=== PATIENT | male | born 1970 | race Caucasian/White ===

== ENCOUNTER 2017-03-06 10:28 | Emergency (ER) | payer SELFPAY ==
[~2017-03-06] VITALS: Ht 162.6 cm; Wt 83.9 kg
--- NOTE | 2017-03-06 11:08 | Urgent Treatment Center Report ---
History of Present Issue Date/Time Seen by Provider 03/06/17 1104 Visit Reason Pt arrived:Walked Presenting Problem:PT C/O ELEVATED B/P. DENIES ANY OTHER PAIN AND ADVISES HE HAD A FULL CARDIAC WORK-UP LAST WEEK AND ALL WAS NORMAL, Location if Accident: Onset of symptoms date/time:/ or onset unknown for:MEDICAL HX UNKNOWN Have you (or family members/close friends) recently traveled outside the [place]? N If Yes, where/when: Have you had exposure to infectious disease within the past month? TB? Other? Specify: Patient state that he was seen last week at [facility] ER and refered to Cardiology where he underwent Stress test and full cardiac work up. State that he is taking Losartan for his blood pressure and it is not working and wanting to be seen to add another blood pressure medication. State that he sees Hardik Zepeda in [place] where he was prescribed the medication. States his work will not let him return until his blood pressure is controlled by medication ALLERGIES Coded Allergies: bupropion (From WELLBUTRIN) (Mild, 03/06/17) History Medical History General CAD? No Angina: No NH: No Hypertension? Yes Hyperlipidemia? No CHF? No DVT? No PE? No COPD? No Asthma? No Anemia? No GERD? No Gastric ulcers? No GI Bleed? No Hernia? No Thyroid Problems? No Hypothyroidism? No CVA? No Seizures? No Diabetes? No Renal Insuffiency? No UTI? No Stones? No BPH? No GB Disease: No Nephritic Syndrome? No Asplenia? No Hepatitis? No Sickle Cell Disease? No Arthritis? No Migraines? No Cataracts? No Glaucoma? No MRSA? No HIV? No TB? No Anxiety? No Depression? No Cancer? No More? No Immunization HX DT/Tetanus 1-4 Years Ago Surgical Hx Previous Surgery?N Social History Smoking Hx Smoker: Never Smoker Tobacco: No Alcohol Alcohol: No Review of Systems All Other Systems Reviewed and Negative Respiratory denies cough, denies shortness of breath Cardiovascular denies chest pain, denies edema, denies palpitations, denies syncope Physical Exam Vital Signs Vital Signs Date Time Temp Pulse Resp B/P Pulse O2 O2 Flow FiO2 Ox Delivery Rate 03/06 1110 98.2 81 16 154/119 98 03/06 1046 98.2 81 16 154/119 98 General Appearance normal appearance, WD/WN, no apparent distress Respiratory Status Yes: trachea midline, chest symmetrical, non tender chest. No: respiratory distress. Cardiovascular normal exam, regular rate/rhythm Neurologic alert, normal exam, oriented x 3 Medical Decision Making LABS/Meds/Orders Pt receiving controlled substance in ED? No Progress [facility] Progress Notes Comment Called Dr Zepeda office in [facility] that had not seen [place] in over a year and would not treat unless he agreed to come there to be seen. Patient informed and advised that we could send to the ER patient refuses to go to the ER Called Dr Blunt office back and they agreed to see him today and do lab work and treat his hypertension. Patient educated on damage that can be caused by untreated hypertension. Discussed patient with Dr Galarza ER physician and informed him of paitnet and his refusal to go to ER Patient advised that he was going straight to Dr Martin office and left the [facility] Departure Departure Time of Disposition 1105 Disposition DC Home or Self Care(routine) Clinical Impression Primary Impression: Hypertension Qualifiers: Hypertension type: unspecified Qualified Code: I10 - Essential ( primary) hypertension Condition STABLE Referrals Hardik Zepeda MD Patient Instructions High Blood Pressure Additional Instructions Follow up today with the appointment made for you at Hardik Blunt office in [place] for complete work up and prescription medication for HTN Take medication as prescribed Keep all follow up appointments with your family doctor as uncontrolled blood pressure could lead to worsening of health problems and even Discharge Counseling Counseled pt/family regarding diagnosis, follow up needs at [phone]
--- NOTE | 2017-03-06 11:08 | Urgent Treatment Center Report ---
History of Present Issue Date/Time Seen by Provider 03/06/17 1104 Visit Reason Pt arrived:Walked Presenting Problem:PT C/O ELEVATED B/P. DENIES ANY OTHER PAIN AND ADVISES HE HAD A FULL CARDIAC WORK-UP LAST WEEK AND ALL WAS NORMAL, Location if Accident: Onset of symptoms date/time:/ or onset unknown for:MEDICAL HX UNKNOWN Have you (or family members/close friends) recently traveled outside the [place]? N If Yes, where/when: Have you had exposure to infectious disease within the past month? TB? Other? Specify: Patient state that he was seen last week at [facility] ER and refered to Cardiology where he underwent Stress test and full cardiac work up. State that he is taking Losartan for his blood pressure and it is not working and wanting to be seen to add another blood pressure medication. State that he sees Hardik Zepeda in [place] where he was prescribed the medication. States his work will not let him return until his blood pressure is controlled by medication ALLERGIES Coded Allergies: bupropion (From WELLBUTRIN) (Mild, 03/06/17) History Medical History General CAD? No Angina: No HI: No Hypertension? Yes Hyperlipidemia? No CHF? No DVT? No PE? No COPD? No Asthma? No Anemia? No GERD? No Gastric ulcers? No GI Bleed? No Hernia? No Thyroid Problems? No Hypothyroidism? No CVA? No Seizures? No Diabetes? No Renal Insuffiency? No UTI? No Stones? No BPH? No GB Disease: No Nephritic Syndrome? No Asplenia? No Hepatitis? No Sickle Cell Disease? No Arthritis? No Migraines? No Cataracts? No Glaucoma? No MRSA? No HIV? No TB? No Anxiety? No Depression? No Cancer? No More? No Immunization HX DT/Tetanus 1-4 Years Ago Surgical Hx Previous Surgery?N Social History Smoking Hx Smoker: Never Smoker Tobacco: No Alcohol Alcohol: No Review of Systems All Other Systems Reviewed and Negative Respiratory denies cough, denies shortness of breath Cardiovascular denies chest pain, denies edema, denies palpitations, denies syncope Physical Exam Vital Signs Vital Signs Date Time Temp Pulse Resp B/P Pulse O2 O2 Flow FiO2 Ox Delivery Rate 03/06 1110 98.2 81 16 154/119 98 03/06 1046 98.2 81 16 154/119 98 General Appearance normal appearance, WD/WN, no apparent distress Respiratory Status Yes: trachea midline, chest symmetrical, non tender chest. No: respiratory distress. Cardiovascular normal exam, regular rate/rhythm Neurologic alert, normal exam, oriented x 3 Medical Decision Making LABS/Meds/Orders Pt receiving controlled substance in ED? No Progress [facility] Progress Notes Comment Called Dr Zepeda office in [facility] that had not seen [place] in over a year and would not treat unless he agreed to come there to be seen. Patient informed and advised that we could send to the ER patient refuses to go to the ER Called Dr Blunt office back and they agreed to see him today and do lab work and treat his hypertension. Patient educated on damage that can be caused by untreated hypertension. Discussed patient with Dr Galarza ER physician and informed him of paitnet and his refusal to go to ER Patient advised that he was going straight to Dr Martin office and left the [facility] Departure Departure Time of Disposition 1105 Disposition DC Home or Self Care(routine) Clinical Impression Primary Impression: Hypertension Qualifiers: Hypertension type: unspecified Qualified Code: I10 - Essential ( primary) hypertension Condition STABLE Referrals Hardik Zepeda MD Patient Instructions High Blood Pressure Additional Instructions Follow up today with the appointment made for you at Hardik Blunt office in [place] for complete work up and prescription medication for HTN Take medication as prescribed Keep all follow up appointments with your family doctor as uncontrolled blood pressure could lead to worsening of health problems and even Discharge Counseling Counseled pt/family regarding diagnosis, follow up needs at [phone]
[2017-03-06 11:10] VITALS: BP 154/119
--- OUTSIDE RECORDS SUMMARY | 2017-03-16 02:56 | External Medical Summary Rpt | CCD ---
Demographics Preferred Language Japanese Marital Status Unknown Anglican Affiliation Unknown Race Unknown Ethnic Group Unknown Author Author , MOHAN PRESTON Address Unknown Phone [email or web address] Care Team Providers Care Federal Judicial Law Clerk Name Role Phone [facility] Unavailable Unavailable MEDICAL GROUP, [facility] Unavailable Unavailable [facility] CERNA MARK, CERNA MARK Unavailable Unavailable [facility] Unavailable Unavailable SPECIAL, [facility] SPECIAL TRIPLETT LYSSA, TRIPLETT Unavailable Unavailable LYSSA [facility] Un[facility] Unavailable Unavailable PRACTICE, [facility] Unavailable Unavailable CARE, [facility] Unavailable Unavailable [facility], [facility] JAM HEN, JAM Unavailable Unavailable HEN SCALF VILMA, SCALF VILMA Unavailable Unavailable SHALORRAINEY DEMOND, SHASHY Unavailable Unavailable DEMOND BROTHERS HENRI, ZEV HENRI Unavailable Unavailable [facility], [facility] Unavailable Un[facility], [facility] Unavailable Unavailable Purpose Continuity of Care Document - 01-22-2015 through 2016 Problems Code Diagnosis DOS Provider Status I10 ESSENTIAL 01-19-2016 [facility]ALTH HYPERTENSIO MEDICAL N GROUP [id number] BODY MASS 01-19-2016 [facility] INDEX BMI HEALTH 31.0-31.9 MEDICAL ADULT GROUP [id number] PRIMARY 12-31-2015 [facility] HEADACHE R05 COUGH 12-31-2015 [facility] N EMERGENCY SERV R1010 UPPER 12-31-2015 [facility] PAIN UNSPECIFIED R109 UNSPECIFIED 12-31-2015 [facility] ABDOMINAL N EMERGENCY PAIN SERV R112 NAUSEA WITH 12-31-2015 [facility] UNSPECIFIED R509 FEVER 12-31-2015 [facility] [place] UNSPECIF[facility] RADIOLOGY R51 HEADACHE 12-31-2015 [facility] R5381 OTHER 12-31-2015 [facility] J029 ACUTE 12-29-2015 [facility] PH[facility]NGITIS [facility]TI[facility]OSP[facility] UNSPECIFIED R42 DIZZINESS 12-29-2015 [facility] AND N EMERGENCY GIDDINESS PHYS Z720 TOBACCO USE 12-29-2015 [facility] HOSPITA G4733 OBSTRUCTIVE 10-30-2015 EAR, NOSE SLEEP AND THROAT APNEA ADULT SPECIAL PEDIATRIC J342 DEVIATED 10-30-2015 EAR, NOSE NASAL AND THROAT SEPTUM SPECIAL G4719 OTHER 10-09-2015 [facility] HYPERSOMNIA [facility] GROUP [id number] SLEEP APNEA 10-09-2015 [facility] HEALTH UNSPECIFIED MEDICAL GROUP R0683 SNORING 10-09-2015 [facility] R0981 NASAL 10-09-2015 [facility] CONGESTION [facility] J069 ACUTE UPPER 08-14-2015 [facility] RESPIRATORY PRACTICE INFECTION UNSPECIFIED J189 PNEUMONIA 08-06-2015 [facility] UNSPEC[facility] N EMERGENCY ORGANISM SERV R0789 OTHER CHEST 08-06-2015 [facility] Results Labs Lab Lab Date Result Refere Interp Status Commen Order Detail nces retati t Range on CHLAMYDIA AND GONORRHEA TESTING (01-22-2015 10:00) Chlamyd POSITIV complet ia 015 E ed trachom 10:00 atis rRNA [Presen ce] in Unspeci fied specime n by Probe & target amplifi cation method Neisser NEGATIV complet ia 015 E ed gonorrh 10:00 oeae rRNA [Presen ce] in Unspeci fied specime n by Probe & target amplifi cation method Treponema pallidum IgG Ab [Presence] in Serum by Immunoassay (01-22-2015 10:00) Trepone NON-OWEN complet ma 015 CTIVE ed pallidu 10:00 m IgG Ab [Presen ce] in Serum by Immunoa ssay Treponema pallidum IgG Ab [Presence] in Serum by Immunoassay (01-22-2015 10:00) COLLECT DLONG, complet OR 015 feed inspection supervisor 10:00 ETHNICI WHITE complet TY 015 NON ed 10:00 HISPANI C PURPOSE OTHER complet OF 015 ed EXAM 10:00 SPECIME BLOOD complet N 015 ed SOURCE 10:00 CHART [id number] complet NUMBER 015 19 ed 10:00 Trepone Pending complet ma 015 ed pallidu 10:00 m IgG Ab [Presen ce] in Serum by Immunoa ssay CHLAMYDIA AND GONORRHEA TESTING (01-22-2015 10:00) COLLECT DLONG,R complet OR 015 N ed 10:00 ETHNICI WHITE, complet TY 015 NON-HIS ed 10:00 PANIC KIT complet EXPIRAT 015 ed ION 10:00 DATE SYMPTOM NO complet S 015 ed 10:00 REASON SEX complet FOR 015 PARTNER ed REQUEST 10:00 REFERRA L SPECIME URINE complet N 015 ed SOURCE 10:00 PREGNAN NO complet T 015 ed 10:00 CHART [id number] complet NUMBER 015 19 ed 10:00 Chlamyd Pending complet ia ed trachom 10:00 atis rRNA [Presen ce] in Unspeci fied specime n by Probe & target amplifi cation method Neisser Pending complet ia ed gonorrh 10:00 oeae rRNA [Presen ce] in Unspeci fied specime n by Probe & target amplifi cation method Procedures Procedure DOS Code Location Performer Comment RADIOLOGI 42416 [facility] [place] [facility] C EXAM 6 RADIOLOGY CHEST 2 VIEWS FRONTAL&L ATERAL THER 93787 [facility] PROPH/DX 6 N N NJX IV COMMUNTIY COMMUNTIY PUSH HOSPITA HOSPITA SINGLE/1S T SBST/DRUG BLOOD 27806 [facility] COUNT 6 N N COMPLETE COMMUNTIY COMMUNTIY AUTO&AUTO HOSPITA HOSPITA DIFRNTL WBC HETEROPHI 83116 [facility] LE 6 N N ANTIBODIE COMMUNTIY COMMUNTIY S SCREEN HOSPITA HOSPITA ECG 18867 [facility] ROUTINE 6 N N ECG COMMUNTIY COMMUNTIY W/LEAST HOSPITA HOSPITA 12 LDS TRCG ONLY W/O I&R ECG 00797 [facility] ROUTINE 6 CIARA LYSSA ECG EMERGENCY W/LEAST PHYS 12 LDS I&R ONLY COLLECTIO 26049 [facility] N VENOUS 6 N N BLOOD COMMUNTIY COMMUNTIY [place] [address] [facility] HEAD/BRAI 6 N N N W/O COMMUNTIY COMMUNTIY CONTRAST HOSPITA HOSPITA MATERIAL COMPREHEN 61762 [facility] SIVE 6 N N METABOLIC COMMUNTIY COMMUNTIY PANEL HOSPITA HOSPITA LARYNGOSC 71798 EAR, NOSE SHASHY OPY 6 AND DEMOND FLEXIBLE THROAT DIAGNOSTI SPECIAL C GENERAL 37154 [facility] HE[facility] 6 [facility] PANEL [facility]INGS HOLDINGS LIPID 48031 [facility] PANEL 6 [facility]I 61143 [facility] CIARA CHEST 2 EMERGENCY VIEWS SERV FRONTAL&L ATERAL THERAPEUT 20744 [facility] IC 6 N N PROPHYLAC COMMUNTIY COMMUNTIY TIC/DX HOSPITA HOSPITA INJECTION SUBQ/IM INJECTION J1885 [facility] 6 N N KETOROLAC COMMUNTIY COMMUNTIY HOSPITA HOSPITA TROMETHAM INE PER 15 MG Encounters Encounter Start End Date Code Location Performer Type Date OFFICE 58181 [facility] OUTPATIEN 6 6 HEALTH T VISIT MEDICAL 15 GROUP MINUTES OFFICE 24327 [facility] N URGENT T NEW 30 CARE MINUTES [facility] 40191 [facility] DEPARTMEN EMERGENCY T VISIT SERV HIGH/URGE NT SEVERITY [facility] - 6 6 N OUTPATIEN COMMUNTIY T HOSPITA EMERGENCY 15476 [facility] 6 6 N DEPARTMEN COMMUNTIY T VISIT HOSPITA HIGH/URGE NT SEVERITY [facility]PITAL [facility] - 6 6 N OUTPATIEN COMMUNTIY T HOSPITA OFFICE 11723 EAR, NOSE SHASHY CONSULTAT 6 6 AND DEMOND ION THROAT NEW/ESTAB SPECIAL PATIENT 60 MIN OFFICE 77308 [facility]ES OUTPATIEN 6 6 HEALTH T NEW 30 MEDICAL MINUTES GROUP OFFICE 24443 [facility] OUTPATIEN 6 6 N FAMILY HEN T VISIT PRACTICE 15 MINUTES EMERGENCY [address] [facility] 6 6 [place] [facility] EMERGENCY T VISIT SERV HIGH/URGE NT SEVERITY [facility] - 6 6 N OUTPATIEN COMMUNTIY T HOSPITA EMERGENCY 20640 [facility] 6 6 N DEPARTMEN COMMUNTIY T VISIT HOSPITA MODERATE SEVERITY
--- OUTSIDE RECORDS SUMMARY | 2017-03-16 02:56 | External Medical Summary Rpt | CCD ---
Demographics Preferred Language Turkmen Marital Status Unknown Cheondoism Affiliation Unknown Race Unknown Ethnic Group Unknown Author Author , MOHAN PRESTON Address Unknown Phone [email or web address] Care Team Providers Care Applications Tester Name Role Phone [facility] Unavailable Unavailable MEDICAL GROUP, [facility], Unavailable Unavailable [facility] CERNA MARK, CERNA MARK Unavailable Unavailable [facility] Unavailable Unavailable SPECIAL, [facility] SPECIAL TRIPLETT LYSSA, TRIPLETT Unavailable Unavailable LYSSA [facility] Unavailable [facility] Unavailable Unavailable PRACTICE, [facility] Unavailable Unavailable C[facility], [facility] Unavailable Unavailable [facility], [facility] JAM HEN, JAM Unavailable Unavailable HEN SCALF VILMA, SCALF VILMA Unavailable Unavailable SHALORRAINEY DEMOND, SHASHY Unavailable Unavailable DEMOND BROTHERS HENRI, ZEV HENRI Unavailable Unavailable [facility], [facility] Unavailable Unavailable [facility]ENCY SERV, [facility] Unavailable Unavailable Purpose Continuity of Care Document - 01-22-2015 through 2016 Problems Code Diagnosis DOS Provider Status I10 ESSENTIAL 01-19-2016 [facility] HYPERTENSIO MEDICAL N GROUP [id number] BODY MASS 01-19-2016 [facility] INDEX BMI HEALTH 31.0-31.9 MEDICAL ADULT GROUP G4483 PRIMARY 12-31-2015 [facility] HEADACHE R05 COUGH 12-31-2015 [facility] N EMERGENCY SERV R1010 UPPER 12-31-2015 [facility] PAIN UNSPECIFIED R109 UNSPECIFIED 12-31-2015 [facility] ABDOMINAL N EMERGENCY PAIN SERV R112 NAUSEA WITH 12-31-2015 [facility] UNSPECIFIED R509 FEVER 12-31-2015 [facility] [place] UNSPECIFIED RADIOLOGY R51 [facility]ACHE 12[facility]31-[address] [facility] R5381 OTHER 12-31-2015 [facility] J029 ACUTE 12-29-2015 [facility]PITA UNSPECIFIED R42 DIZZINESS 12-29-2015 [facility] AND N EMERGENCY GIDDINESS PHYS Z720 TOBACCO USE 12-29-2015 [facility] HOSPITA G4733 OBSTRUCTIVE 10-30-2015 EAR, NOSE SLEEP AND THROAT APNEA ADULT SPECIAL PEDIATRIC J342 DEVIATED 10-30-2015 EAR, NOSE NASAL AND THROAT SEPTUM SPECIAL G4719 OTHER 10-09-2015 [facility] HYPERSOMNIA [facility] MEDICAL GROUP G4730 SLEEP APNEA 10-09-2015 [facility] HEALTH UNSPECIFIED MEDICAL GROUP R0683 SNORING 10-09-2015 [facility] R0981 NASAL 10-09-2015 [facility] CONGESTION [facility] J069 ACUTE UPPER 08-14-2015 [facility] RESPIRATORY PRACTICE INFECTION UNSPECIFIED J189 PNEUMONIA 08-06-2015 [facility] UNSPECIFIED N EMERGENCY ORGANISM SERV R0789 OTHER CHEST 08-06-2015 [facility] Results Labs Lab Lab Date Result Refere [...] (01-22-2015 10:00) COLLECT DLONG, complet OR 015 technical education teacher 10:00 ETHNICI WHITE complet TY 015 NON ed 10:00 HISPANI C PURPOSE OTHER complet OF 015 ed EXAM 10:00 SPECIME BLOOD complet N 015 ed SOURCE 10:00 CHART [id number] complet NUMBER 015 19 ed 10:00 Trepone [...] NO complet T 015 ed 10:00 CHART [id number] complet NUMBER 015 19 ed 10:00 Chlamyd Pending complet ia ed trachom 10:00 atis rRNA [Presen ce] in Unspeci fied specime n by Probe & target amplifi cation method Neisser Pending complet ia ed gonorrh 10:00 oeae rRNA [Presen ce] in Unspeci fied specime n by Probe & target amplifi cation method Procedures Procedure DOS Code Location Performer Comment RADIOLOGI 65747 [facility] [place] [facility] C EXAM 6 RADIOLOGY CHEST 2 VIEWS FRONTAL&L ATERAL THER 19725 [facility] PROPH/DX 6 N N NJX IV COMMUNTIY COMMUNTIY PUSH HOSPITA HOSPITA SINGLE/1S T SBST/DRUG BLOOD 61813 [facility] COUNT 6 N N COMPLETE COMMUNTIY COMMUNTIY AUTO&AUTO HOSPITA HOSPITA DIFRNTL WBC HETEROPHI 00125 [facility] LE 6 N N ANTIBODIE COMMUNTIY COMMUNTIY S SCREEN HOSPITA HOSPITA ECG 83492 [facility] ROUTINE 6 N N ECG COMMUNTIY COMMUNTIY W/LEAST HOSPITA HOSPITA 12 LDS TRCG ONLY W/O I&R ECG 61582 [facility] ROUTINE 6 CIARA LYSSA ECG EMERGENCY W/LEAST PHYS 12 LDS I&R ONLY COLLECTIO 95783 [facility] N VENOUS 6 N N BLOOD COMMUNTIY COMMUNTIY [place] [address] [facility] HEAD/BRAI 6 N N N W/O COMMUNTIY COMMUNTIY CONTRAST HOSPITA HOSPITA MATERIAL COMPREHEN 71085 [facility] SIVE 6 N N METABOLIC COMMUNTIY COMMUNTIY PANEL HOSPITA HOSPITA LARYNGOSC 92369 EAR, NOSE SHASHY OPY 6 AND DEMOND FLEXIBLE THROAT DIAGNOSTI SPECIAL C GENERAL 38243 [facility] HE[facility] 6 LEON LE[facility] PANEL HOLDINGS HOLDINGS LIPID 21464 [facility] YR PANEL 6 [facility] RADIOLOGI 29456 [facility] EXAM 6 CIARA CHEST 2 EMERGENCY VIEWS SERV FRONTAL&L ATERAL THERAPEUT 30352 [facility] IC 6 N N PROPHYLAC COMMUNTIY COMMUNTIY TIC/DX HOSPITA HOSPITA INJECTION SUBQ/IM INJECTION J1885 [facility] 6 N N KETOROLAC COMMUNTIY COMMUNTIY HOSPITA HOSPITA TROMETHAM INE PER 15 MG Encounters Encounter Start End Date Code Location Performer Type Date OFFICE 18810 [facility] OUTPATIEN 6 6 HEALTH T VISIT MEDICAL 15 GROUP MINUTES OFFICE 59852 [facility] 6 6 N URGENT T NEW 30 CARE MINUTES EMERGENCY 49123 [facility] 6 6 [place] DEPARTMEN EMERGENCY T VISIT SERV HIGH/URGE NT SEVERITY [facility] - 6 6 N OUTPATIEN COMMUNTIY T HOSPITA EMERGENCY 23657 [facility] 6 6 N DEPARTMEN COMMUNTIY T VISIT HOSPITA HIGH/URGE NT SEVERITY [facility] - 6 6 N OUTPATIEN COMMUNTIY T HOSPITA OFFICE 47692 EAR, NOSE SHASHY CONSULTAT 6 6 AND DEMOND ION THROAT NEW/ESTAB SPECIAL PATIENT 60 MIN OFFICE 90372 [facility] OUT[facility] 6 6 HEALTH T NEW 30 MEDICAL MINUTES GROUP OFFICE 99625 [facility] OUTPATIEN 6 6 N FAMILY HEN T VISIT PRACTICE 15 MINUTES EMERGENCY 27297 [facility] 6 6 [place] [facility] EMERGENCY T VISIT SERV HIGH/URGE NT SEVERITY [facility] - 6 6 N OUTPATIEN COMMUNTIY T HOSPITA EMERGENCY 92910 [facility] 6 6 N DEPARTMEN COMMUNTIY T VISIT HOSPITA MODERATE SEVERITY
--- OUTSIDE RECORDS SUMMARY | 2017-03-16 02:56 | External Medical Summary Rpt | Continuity of Care Document ---
Author Author Organization Address Unknown Phone Unavailable Care Team Providers Care Claims Attorney Name Role Phone , Unavailable Unavailable EMS Current Medications Section EMS Allergies and Adverse Reactions EMS Past Medical History Medications Administered Section EMS Procedures Performed EMS Vital Signs EMS Patient Care Report Narrative D: EC 2 dispatched to [facility] for patient experiencing chest pain. Arrived to find 46 year old male lying supine on EMS stretcher in care of medical staff @ [facility]. Pt. in no obvious distress. C: Pt. c/o substernal NR chest pain. Pt. rates pain @ 8/10. H: RN states patient was working earlier this evening when experienced sudden onset of chest pain. Pt. denies any cardiac history. RN states patient received 0.4 NTG SL x 2 prior to our arrival without relief. RN states they also administered 325 mg ASA prior to our arrival. Pt. began to c/o HANKINS states he does have PMHX of migraines and HTN. A: Pt. conscious, alert and oriented x 4; skin w/d with normal coloration; Lungs c/e bilat; MARCELINO; Pt. answered all questions appropriately but at times was unable to obey commands, he states due to weakness. Physical exam revealed no other significant findings. R: Pt. monitored and reassessed throughout transport; Pt. able to maintain effective VS for duration of trip. Prior to our arrival [facility] medical staff initiated an IV of NS @ kvo rate and performed 12 lead EKG. 12 lead was repeated enroute and revealed SR @ 70 bpm. While enroute patient stated his chest pain and his HANKINS had minimally subsided. T: Pt. requested and was transported to [facility] ED where, upon arrival, patient care along with written and verbal reports were transferred to ED Personnel. N: Emergency response for chest pain.
--- OUTSIDE RECORDS SUMMARY | 2017-03-16 02:56 | External Medical Summary Rpt | Continuity of Care Document ---
Author Author Organization Address Unknown Phone Unavailable Care Team Providers Care Switchboard Inspector Name Role Phone , Unavailable Unavailable EMS Current Medications Section EMS Allergies and Adverse Reactions EMS Past Medical History Medications Administered Section EMS Procedures Performed EMS Vital Signs EMS Patient Care Report Narrative D: EC 2 dispatched to [facility] for patient experiencing chest pain. Arrived to [...] duration of trip. Prior to our arrival [facility] medical staff initiated an IV of NS @ kvo rate and performed 12 lead EKG. 12 lead was repeated enroute and revealed SR @ 70 bpm. While enroute patient stated his chest pain and his HANKINS had minimally subsided. T: Pt. requested and was transported to [facility] ED where, upon arrival, patient care along with written and verbal reports were transferred to ED Personnel. N: Emergency response for chest pain.
--- OUTSIDE RECORDS SUMMARY | 2017-03-16 02:56 | External Medical Summary Rpt | Continuity of Care Document ---
Author Author Organization Address Unknown Phone Unavailable Care Team Providers Care Beading Sawyer Name Role Phone , Unavailable Unavailable EMS Current Medications Section EMS Allergies and Adverse Reactions EMS Past Medical History Medications Administered Section EMS Procedures Performed EMS Vital Signs EMS Patient Care Report Narrative D: EC 2 dispatched to [facility] for patient experiencing chest pain. Arrived to [...] duration of trip. Prior to our arrival [facility] medical staff initiated an IV of NS @ kvo rate and performed 12 lead EKG. 12 lead was repeated enroute and revealed SR @ 70 bpm. While enroute patient stated his chest pain and his HANKINS had minimally subsided. T: Pt. requested and was transported to [facility] ED where, upon arrival, patient care along with written and verbal reports were transferred to ED Personnel. N: Emergency response for chest pain.
--- OUTSIDE RECORDS SUMMARY | 2017-03-16 02:56 | External Medical Summary Rpt | Continuity of Care Document ---
Author Author Organization Address Unknown Phone Unavailable Care Team Providers Care Network Systems Consultant Name Role Phone , Unavailable Unavailable EMS Current Medications Section EMS Allergies and Adverse Reactions EMS Past Medical History Medications Administered Section EMS Procedures Performed EMS Vital Signs EMS Patient Care Report Narrative D: EC 2 dispatched to [facility] for patient experiencing chest pain. Arrived to [...] duration of trip. Prior to our arrival [facility] medical staff initiated an IV of NS @ kvo rate and performed 12 lead EKG. 12 lead was repeated enroute and revealed SR @ 70 bpm. While enroute patient stated his chest pain and his HANKINS had minimally subsided. T: Pt. requested and was transported to [facility] ED where, upon arrival, patient care along with written and verbal reports were transferred to ED Personnel. N: Emergency response for chest pain.
--- OUTSIDE RECORDS SUMMARY | 2017-03-16 02:57 | External Medical Summary Rpt ---
Author Author MOHAN [employer], MOHAN [employer] Organization [employer] Address Unknown Phone Unavailable Results CHLAMYDIA AND GONORRHEA TESTING Observa Value Referen Units Interpr Notes Date tion ce etation Range COLLECT DLONG,R No No No No Jan 22 OR N informa informa informa informa 2015 tion in tion in tion in tion in 10:00 source source source source AM data data data data ETHNICI WHITE, No No No No Jan 22 TY NON-HIS informa informa informa informa 2015 PANIC tion in tion in tion in tion in 10:00 source source source source AM data data data data KIT No No No No Jan 22 EXPIRAT informa informa informa informa 2015 ION tion in tion in tion in tion in 10:00 DATE source source source source AM data data data data SYMPTOM NO No No No No Jan 22 S informa informa informa informa 2015 tion in tion in tion in tion in 10:00 source source source source AM data data data data REASON SEX No No No No Jan 22 FOR PARTNER informa informa informa informa 2015 REQUEST tion in tion in tion in tion in 10:00 REFERRA source source source source AM L data data data data SPECIME URINE No No No No Jan 22 N informa informa informa informa 2015 SOURCE tion in tion in tion in tion in 10:00 source source source source AM data data data data PREGNAN NO No No No No Jan 22 T informa informa informa informa 2015 tion in tion in tion in tion in 10:00 source source source source AM data data data data CHART [id number] No No No No Jan 22 NUMBER 19 informa informa informa informa 2015 tion in tion in tion in tion in 10:00 source source source source AM data data data data Chlamyd POSITIV No No No NEGATIV Jan 22 ia E informa informa informa E 2015 trachom tion in tion in tion in RESULT= 10:00 atis source source source WITHIN AM rRNA data data data NORMAL [Presen ce] in LIMITSP Unspeci OSITIVE fied specime RESULT= n by Probe & ABNORMA target LEQUIVO AMARJIT amplifi RESULT= cation method INDETER MINATEU NSATISF ACTORY RESULT= INVALID Neisser NEGATIV No No No NEGATIV Jan 22 ia E informa informa informa E 2015 gonorrh tion in tion in tion in RESULT= 10:00 oeae source source source WITHIN AM rRNA data data data NORMAL [Presen ce] in LIMITSP Unspeci OSITIVE fied specime RESULT= n by Probe & ABNORMA target LEQUIVO AMARJIT amplifi RESULT= cation method INDETER MINATEU NSATISF ACTORY RESULT= INVALID THE APTIMA COMBO 2 ASSAY IS NOT INTENDE D FOR THE EVALUAT ION OF SUSPECT EDSEXUA L ABUSE OR FOR OTHER MEDICO- LEGAL INDICAT IONS. FOR THOSE PATIENT S FORWHOM A FALSE POSITIV E RESULT MAY HAVE ADVERSE PSYCHO- SOCIAL IMPACT, THE [facility] MMENDS RETESTI NG.\.br \This report contain s patient informa tion that must be protect ed in accorda nce with the Health Insuran ce Portabi lity and Account ability Act. 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 informa 2015 tion in tion in tion in tion in 10:00 source source source source AM data data data data ETHNICI WHITE No No No No Jan 22 TY NON informa informa informa informa 2015 HISPANI tion in tion in tion in tion in 10:00 C source source source source AM data data data data PURPOSE OTHER No No No No Jan 22 OF informa informa informa informa 2015 EXAM tion in tion in tion in tion in 10:00 source source source source AM data data data data SPECIME BLOOD No No No No Jan 22 N informa informa informa informa 2015 SOURCE tion in tion in tion in tion in 10:00 source source source source AM data data data data CHART [id number] No No No No Jan 22 NUMBER 19 informa informa informa informa 2015 tion in tion in tion in tion in 10:00 source source source source AM data data data data Trepone NON-OWEN No No No METHOD Jan [address] informa informa informa OF 2015 pallidu tion in tion in tion in ANALYSI 10:00 m IgG source source source S: AM Ab data data data EIANORM [Presen AL ce] in RANGE: Serum NON-OWEN by CTIVE\. Immunoa br\This ssay report contain s patient informa tion that must be protect ed [facility] with the Health Insuran ce Portabi lity and Account ability Act. 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 informa 2015 tion in tion in tion in tion in 10:00 source source source source AM data data data data ETHNICI WHITE No No No No Jan 22 TY NON informa informa informa informa 2015 HISPANI tion in tion in tion in tion in 10:00 C source source source source AM data data data data PURPOSE OTHER No No No No Jan 22 OF informa informa informa informa 2015 EXAM tion in tion in tion in tion in 10:00 source source source source AM data data data data SPECIME BLOOD No No No No Jan 22 N informa informa informa informa 2015 SOURCE tion in tion in tion in tion in 10:00 source source source source AM data data data data CHART [id number] No No No No Jan 22 NUMBER 19 informa informa informa informa 2015 tion in tion in tion in tion in 10:00 source source source source AM data data data data Trepone Pending No No No \.br\Jan 22 ma informa informa informa is 2015 pallidu tion in tion in tion in report 10:00 m IgG source source source contain AM Ab data data data s [Presen patient ce] in Serum informa by tion Immunoa that ssay must be protect ed in accorda nce with the Health Insuran ce Portabi lity and Account ability Act. CHLAMYDIA AND GONORRHEA TESTING Observa Value Referen Units Interpr Notes Date tion ce etation Range COLLECT DLONG,R No No No No Jan 22 OR N informa informa informa informa 2015 tion in tion in tion in tion in 10:00 source source source source AM data data data data ETHNICI WHITE, No No No No Jan 22 TY NON-HIS informa informa informa informa 2015 PANIC tion in tion in tion in tion in 10:00 source source source source AM data data data data KIT No No No No Jan 22 EXPIRAT informa informa informa informa 2015 ION tion in tion in tion in tion in 10:00 DATE source source source source AM data data data data SYMPTOM NO No No No No Jan 22 S informa informa informa informa 2015 tion in tion in tion in tion in 10:00 source source source source AM data data data data REASON SEX No No No No Jan 22 FOR PARTNER informa informa informa informa 2015 REQUEST tion in tion in tion in tion in 10:00 REFERRA source source source source AM L data data data data SPECIME URINE No No No No Jan 22 N informa informa informa informa 2015 SOURCE tion in tion in tion in tion in 10:00 source source source source AM data data data data PREGNAN NO No No No No Jan 22 T informa informa informa informa 2015 tion in tion in tion in tion in 10:00 source source source source AM data data data data CHART [id number] No No No No Jan 22 NUMBER 19 informa informa informa informa 2015 tion in tion in tion in tion in 10:00 source source source source AM data data data data Chlamyd Pending No No No No Jan 22 ia informa informa informa informa 2015 trachom tion in tion in tion in tion in 10:00 atis source source source source AM rRNA data data data data [Presen ce] in Unspeci fied specime n by Probe & target amplifi cation method Neisser Pending No No No \.br\Jan 22 ia informa informa informa is 2015 gonorrh tion in tion in tion in report 10:00 oeae source source source contain AM rRNA data data data s [Presen patient ce] in Unspeci informa fied tion specime that n by must be Probe & target protect ed in amplifi accorda cation nce method with the Health Insuran ce Portabi lity and Account ability Act.
--- OUTSIDE RECORDS SUMMARY | 2017-03-16 02:57 | External Medical Summary Rpt ---
Author Author MOHAN Production, MOHAN [employer] Organization [employer] Address Unknown Phone Unavailable [...] source AM data data data data CHART [id number] No No No No Jan 22 NUMBER [...] HAVE ADVERSE PSYCHO- SOCIAL IMPACT, [facility].\.br \This report contain s patient informa tion that must be protect ed in accorda nce with the Health Insuran ce Portabi lity and Account ability Act. 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
--- OUTSIDE RECORDS SUMMARY | 2017-03-16 02:57 | External Medical Summary Rpt | CCD ---
Author Author , MOHAN PRESTON Address Unknown Phone [email or web address] Care Team Providers Care Industrial Cleaner Name Role Phone [facility] Unavailable Unavailable MEDICAL GROUP, [facility], Unavailable Unavailable [facility] CERNA MARK, CERNA MARK Unavailable Unavailable [facility] Unavailable Unavailable SPECIAL, [facility] TRIPLETT LYSSA, TRIPLETT Unavailable Unavailable [facility]SS[facility] Unavailable Unavailable PRACTICE, [facility] Unavailable Unavailable CARE, [facility] Unavailable Unavailable [facility], [facility] JAM HEN, JAM Unavailable Unavailable HEN SCALF VILMA, SCALF VILMA Unavailable Unavailable SHASHY DEMOND, SHASHY Unavailable Unavailable DEMOND BROTHERS HENRI, BROTHERS HENRI Unavailable Unavailable [facility], [facility] Unavailable Unavailable [facility], [facility] Unavailable Unavailable Purpose Continuity of Care Document - 08-06-2015 through 2016 Problems Code Diagnosis DOS Provider Status I10 ESSENTIAL 01-19-2016 [facility] HYPERTENSIO MEDICAL N GROUP [id number] BODY MASS 01-19-2016 [facility] BMI HEALTH 31.0-31.9 MEDICAL ADULT GROUP [id number] PRIMARY 12-31-2015 [facility] HEADACHE R05 COUGH 12-31-2015 [facility] R1010 UPPER 12-31-2015 [facility] PAIN UNSPECIFIED R109 UNSPECIFIED 12-31-2015 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 UNSPECIFIED N EMERGENCY ORGANISM SERV R0789 OTHER CHEST 08-06-2015 [facility] Procedures Procedure DOS Code Location Performer Comment RADIOLOGI 56940 [facility] SCO C EXAM 6 [place] CHEST 2 EMERGENCY VIEWS SERV FRONTAL&L ATERAL THER 49870 [facility] PROPH/DX 6 N N NJX IV COMMUNTIY COMMUNTIY PUSH HOSPITA HOSPITA SINGLE/1S T SBST/DRUG COMPREHEN 96238 [facility] SIVE 6 N N METABOLIC COMMUNTIY COMMUNTIY PANEL HOSPITA HOSPITA COLLECTIO 75704 [facility] N VENOUS 6 N N BLOOD COMMUNTIY COMMUNTIY [place] [address] [facility] [place] [facility] HEAD/BRAI 6 RADIOLOGY N W/O CONTRAST MATERIAL BLOOD 31589 [facility] COUNT 6 N N COMPLETE COMMUNTIY COMMUNTIY AUTO&AUTO HOSPITA HOSPITA DIFRNTL WBC HETEROPHI 93732 [facility] LE 6 N N ANTIBODIE COMMUNTIY COMMUNTIY S SCREEN HOSPITA HOSPITA ECG 95387 [facility] ROUTINE 6 N N ECG COMMUNTIY COMMUNTIY W/LEAST HOSPITA HOSPITA 12 LDS TRCG ONLY W/O I&R ECG 24133 [facility] ROUTINE 6 CIARA LYSSA ECG EMERGENCY W/LEAST PHYS 12 LDS I&R ONLY LARYNGOSC 77704 EAR, NOSE SHASHY OPY 6 AND DEMOND FLEXIBLE THROAT DIAGNOSTI SPECIAL C LIPID 66981 [facility] PANEL 6 [facility] 31077 [facility] HEALTH 6 [facility] PANEL [facility] RADIOLOGI 52280 [facility] C EXAM 6 N N CHEST 2 COMMUNTIY COMMUNTIY VIEWS HOSPITA HOSPITA FRONTAL&L ATERAL THERAPEUT 93220 [facility] IC 6 N N PROPHYLAC COMMUNTIY COMMUNTIY TIC/DX HOSPITA HOSPITA INJECTION SUBQ/IM INJECTION J1885 [facility] 6 N N KETOROLAC COMMUNTIY COMMUNTIY HOSPITA HOSPITA TR[place] INE PER 15 MG Encounters Encounter Start End Date Code Location Performer Type Date OFFICE 39141 [facility] OUTPATIEN 6 6 HEALTH T VISIT MEDICAL 15 GROUP MINUTES OFFICE 79030 [facility] 6 6 N URGENT T NEW 30 CARE MINUTES [facility] - 6 6 N OUTPATIEN COMMUNTIY T HOSPITA EMERGENCY 64184 [facility] 6 6 CIARA DEPARTMEN EMERGENCY T VISIT SERV HIGH/URGE NT SEVERITY EMERGENCY 64521 [facility] 6 6 [place] LYSSA DEPARTMEN EMERGENCY T VISIT PHYS HIGH/URGE NT SEVERITY [facility] - 6 6 N OUTPATIEN COMMUNTIY T HOSPITA OFFICE 85266 EAR, NOSE SHASHY CONSULTAT 6 6 AND DEMOND ION THROAT NEW/ESTAB SPECIAL PATIENT 60 MIN OFFICE 10148 [facility] 6 6 HEALTH T NEW 30 MEDICAL MINUTES GROUP OFFICE 05292 [facility] OUTPATIEN 6 6 N FAMILY HEN T VISIT PRACTICE 15 MINUTES EMERGENCY 07155 [facility] 6 6 [place] [facility] EMERGENCY T VISIT SERV HIGH/URGE NT SEVERITY EMERGENCY 05018 [facility] 6 6 N [facility] COMMUNTIY T VISIT HOSPITA MODERATE SEVERITY [facility] 6 6 [facility]
--- OUTSIDE RECORDS SUMMARY | 2017-03-16 02:57 | External Medical Summary Rpt | CCD ---
Author Author , MOHAN PRESTON Address Unknown Phone [email or web address] Care Team Providers Care Sat Math Tutor Name Role Phone [facility] Unavailable Unavailable MEDICAL GROUP, [facility], Unavailable Unavailable [facility] CERNA MARK, CERNA MARK Unavailable Unavailable [facility] Unavailable Unavailable SPECIAL, [facility] TRIPLETT LYSSA, TRIPLETT Unavailable Unavailable LYSSA [facility] Unavailable Unavailable [facility], [facility] Unavailable Unavailable PRACTICE, [facility] Unavailable Unavailable C[facility], [facility] Unavailable Unavailable [facility], [facility] JAM HEN, JAM Unavailable Unavailable HEN SCALF VILMA, SCALF VILMA Unavailable Unavailable SHASHY DEMOND, SHASHY Unavailable Unavailable DEMOND BROTHERS HENRI, BROTHERS HENRI Unavailable Un[facility] Un[facility], [facility] Unavailable Unavailable Purpose Continuity of Care Document - 08-06-2015 through 2016 Problems Code Diagnosis DOS Provider Status I10 ESSENTIAL 01-19-2016 [facility]YP[facility] MEDICAL N GROUP [id number] BODY MASS 01-19-2016 [facility] BMI HEALTH 31.0-31.9 MEDICAL ADULT GROUP G4483 PRIMARY 12-31-2015 [facility] HEADACHE R05 COUGH 12-31-2015 [facility] R1010 UPPER 12-31-2015 [facility] PAIN UNSPECIFIED R109 UNSPECIFIED 12-31-2015 [facility] ABDOMINAL N EMERGENCY PAIN SERV R112 NAUSEA WITH 12-31-2015 [facility] UNSPECIFIED R509 FEVER 12-31-2015 [facility] [place] [facility]PEC[facility] RADIOLOGY R51 HEADACHE 12-31-2015 [facility] R5381 OTHER 12-31-2015 [facility] J029 ACUTE 12-29-2015 [facility] UNSPECIFIED R42 DIZZINESS 12-29-2015 [facility] GIDDINESS PHYS Z720 TOBACCO USE 12-29-2015 [facility] G4733 OBSTRUCTIVE 10-30-2015 [facility], NOSE SLEEP AND THROAT APNEA ADULT SPECIAL PEDIATRIC J342 DEVIATED 10-30-2015 EAR, NOSE NASAL AND THROAT SEPTUM SPECIAL G4719 OTHER 10-09-2015 [facility] G4730 SLEEP APNEA 10-09-2015 [facility] UNSPECIFIED MEDICAL GROUP R0683 SNORING 10-09-2015 [facility] R0981 NASAL 10-09-2015 [facility] J069 ACUTE UPPER 08-14-2015 [facility] INFECTION UNSPECIFIED J189 PNEUMONIA 08-06-2015 [facility] UNSPECIFIED N EMERGENCY ORGANISM SERV R0789 OTHER CHEST 08-06-2015 [facility] Procedures Procedure DOS Code Location Performer Comment RADIOLOGI 84658 [facility] SCO C EXAM 6 [place] CHEST 2 EMERGENCY VIEWS SERV FRONTAL&L ATERAL THER 61835 [facility] PROPH/DX 6 N N NJX IV COMMUNTIY COMMUNTIY PUSH HOSPITA HOSPITA SINGLE/1S T SBST/DRUG COMPREHEN 44033 [facility] SIVE 6 N N METABOLIC COMMUNTIY COMMUNTIY PANEL HOSPITA HOSPITA COLLECTIO 33243 [facility] N VENOUS 6 N N BLOOD COMMUNTIY COMMUNTI[place] [address] [facility] [place] [facility] HEAD/BRAI 6 RADIOLOGY N W/O CONTRAST MATERIAL BLOOD 50320 [facility] COUNT 6 N N COMPLETE COMMUNTIY COMMUNTIY AUTO&AUTO HOSPITA HOSPITA DIFRNTL WBC HETEROPHI 66006 [facility] LE 6 N N ANTIBODIE COMMUNTIY COMMUNTIY S SCREEN HOSPITA HOSPITA ECG 73582 [facility] ROUTINE 6 N N ECG COMMUNTIY COMMUNTIY W/LEAST HOSPITA HOSPITA 12 LDS TRCG ONLY W/O I&R ECG 19533 [facility] ROUTINE 6 CIARA LYSSA ECG EMERGENCY W/LEAST PHYS 12 LDS I&R ONLY LARYNGOSC 60320 EAR, NOSE SHASHY OPY 6 AND DEMOND FLEXIBLE THROAT DIAGNOSTI SPECIAL C LIPID 46020 [facility] PANEL 6 [facility] 09702 [facility] 6 [facility] PANEL [facility] RADIOLOGI 00672 [facility] C EXAM 6 N N CHEST 2 COMMUNTIY COMMUNTIY VIEWS HOSPITA HOSPITA FRONTAL&L ATERAL THERAPEUT 07797 [facility] IC 6 N N PROPHYLAC COMMUNTIY COMMUNTIY TIC/DX HOSPITA HOSPITA INJECTION SUBQ/IM INJECTION J1885 [facility] 6 N N KETOROLAC COMMUNTIY COMMUNTIY HOSPITA HOSPITA [place] INE PER 15 MG Encounters Encounter Start End Date Code Location Performer Type Date OFFICE 18569 [facility] OUTPATIEN 6 6 HEALTH T VISIT MEDICAL 15 GROUP MINUTES OFFICE 39775 [facility] 6 6 N URGENT T NEW 30 CARE MINUTES [facility] - 6 6 N OUTPATIEN COMMUNTIY T HOSPITA EMERGENCY 62765 [facility] 6 6 CIARA DEPARTMEN EMERGENCY T VISIT SERV HIGH/URGE NT SEVERITY EMERGENCY 02839 [facility] 6 6 [place]ARA LYSSA DEPARTMEN EMERGENCY T VISIT PHYS HIGH/URGE NT SEVERITY [facility]OSPITAL [facility] - 6 6 N OUTPATIEN COMMUNTIY T HOSPITA OFFICE 56596 EAR, NOSE SHASHY CONSULTAT 6 6 AND DEMOND ION THROAT NEW/ESTAB SPECIAL PATIENT 60 MIN OFFICE 00954 [facility] OUTPATIEN 6 6 HEALTH T NEW 30 MEDICAL MINUTES GROUP OFFICE [address] [facility] [facility] OUTPATIEN 6 6 N FAMILY HEN T VISIT PRACTICE 15 MINUTES EMERGENCY 32103 [facility] 6 6 [place] [facility] EMERGENCY T VISIT SERV HIGH/URGE NT SEVERITY EMERGENCY 97490 [facility] 6 6 N [facility] COMMUNTIY T VISIT HOSPITA MODERATE SEVERITY [facility]
--- OUTSIDE RECORDS SUMMARY | 2017-03-16 02:57 | External Medical Summary Rpt | CCD ---
Demographics Preferred Language Kazakh Marital Status Unknown Catholic Affiliation Unknown Race Unknown Ethnic Group Unknown Author Author , MOHAN PRESTON Address Unknown Phone Immunization No patient found.
--- OUTSIDE RECORDS SUMMARY | 2017-03-16 02:57 | External Medical Summary Rpt | CCD ---
Demographics Preferred Language Yakut Marital Status Unknown Voodoo Affiliation Unknown Race Unknown Ethnic Group Unknown Author Author , MOHAN PRESTON Address Unknown Phone Immunization No patient found.
== END 2017-03-06 11:12 | disposition home or self-care (01) ==
LOC: UTC 10:28
DX: I10 Essential (primary) hypertension (principal); Z88.8 Allergy status to other drugs, medicaments and biological substances